=== PATIENT | female | born 1950 | race Caucasian/White ===

== ENCOUNTER → 2024-10-04 10:34 | Outpatient (REF) | payer MEDICARE, OTHER, SELFPAY | LOC: RAD 10:34 | PROVIDERS: ATTENDING PHYSICIAN Surgery Vascular Surgery | DX: I73.9 Peripheral vascular disease, unspecified (principal) | CPT/HCPCS: 93922 ==

== ENCOUNTER → 2024-10-06 09:10 | Outpatient (REF) | payer MEDICARE, OTHER, SELFPAY | LOC: RAD 09:10 | PROVIDERS: ATTENDING PHYSICIAN Surgery Vascular Surgery; FAMILY PHYSICIAN Internal Medicine | DX: I74.9 Embolism and thrombosis of unspecified artery (principal); I70.222 Atherosclerosis of native arteries of extremities with rest pain, left leg | CPT/HCPCS: 75635; Q9967 ==

== ENCOUNTER → 2024-10-09 09:52 | Outpatient (REF) | payer MEDICARE, OTHER, SELFPAY | LOC: RAD 09:52 | PROVIDERS: ATTENDING PHYSICIAN Surgery Vascular Surgery | DX: Z01.810 Encounter for preprocedural cardiovascular examination (principal); I70.222 Atherosclerosis of native arteries of extremities with rest pain, left leg; I74.8 Embolism and thrombosis of other arteries | CPT/HCPCS: 93970 ==

== ENCOUNTER 2024-10-16 09:16 | Inpatient (IN) | payer MEDICARE, OTHER, SELFPAY ==
[2024-10-12 09:32] VITALS: BMI 21.7
[2024-10-12 10:04] LABS: INR 1.06; PT 14.3 Sec (11.4-14.6)
[2024-10-12 10:05] LABS: APTT 36.7 Sec (23.4-35.0)
[2024-10-12 10:17] LABS: % Basophils 2.1 % (0-2); % Eosinophils 1.6 % (0-6); % Immature Granulocytes 0.6 % (0-0.5); % Lymphocytes 21.4 % (20.5-51.1); % Neutrophils 65.3 % (42.2-75.2); Absolute Basophils 0.3 10^3/uL (0-0.2); Absolute Eosinophils 0.2 10^3/uL (0-0.7); Absolute Immature Granulocytes 0.1 10^3/uL (0-0.05); Absolute Lymphocytes 2.9 10^3/uL (1.2-3.4); Absolute Monocytes 1.2 10^3/uL (0.1-0.6); Absolute Neutrophils 8.7 10^3/uL (1.4-6.5); Hematocrit 45.1 % (37.0-47.0); Hemoglobin 14.5 g/dL (12.0-16.0); Mean Corp Hgb Conc. 32.2 g/dL (33.0-37.0); Mean Corpuscular Hgb 27.5 pg (27.0-31.0); Mean Corpuscular Volume 85.4 fL (81.0-99.0); Mean Platelet Volume 10.1 fL (7.4-10.4); Nucleated Red Blood Cells % 0 %; Platelet Count 976 10^3/uL (130-400); Red Blood Cell Count 5.28 10^6/uL (4.20-5.40); Red Cell Dist. Width 16.5 % (11.5-14.5); White Blood Cell Count 13.3 10^3/uL (4.8-10.8)
[2024-10-12 10:22] LABS: Blood Urea Nitrogen 13 mg/dl (7-17); Calcium 9.6 mg/dl (8.4-10.2); Carbon Dioxide 27 mmol/L (22-30); Chloride 99 mmol/L (98-107); Estimated Creatinine Clearance 43 ml/min; Glucose 101 mg/dl (70-99); Potassium 5.2 mmol/L (3.5-5.1); Sodium 137 mmol/L (135-145); eGFR > 60.00
[2024-10-16] VITALS (8 sets, daily range): BP systolic 124–157; BP diastolic 62–86
[2024-10-16] MEDS: PERIDEX 0.12% ORAL RINSE 15 ML PO (10:01)
[2024-10-16] MEDS: BACTROBAN NASAL 1 GRAM NASAL (10:01)
[2024-10-16] MEDS: NSS 500 IV (10:01)
--- NOTE | 2024-10-16 12:09 | W.SUR.PREOP ---
Pre-Operative Surgical Note
-
I have examined this patient prior to the performance of the scheduled procedure.
The patient's condition is unchanged from the time of the current History and
Physical and the patient is able to undergo the scheduled procedure.
--- NOTE | 2024-10-16 12:50 | PTCARENOTE ---
attempted to call spouse, unavailable called a couple of times, called atrium spouse not visible and left atrium area, will keep a look out and notify pt went into procedure at 1245 pm
--- NOTE | 2024-10-16 15:27 | W.SUR.POST ---
Surgical Immediate Post Op
Note
Pre Op Diagnosis: PAD
Post Op Diagnosis: PAD
Procedure Performed: Left distal SFA to above knee popliteal artery interposition bypass with ipsilateral saphenous vein graft
Primary Surgeon: Jairo
Assist: Jerome MICHELLE
Anesthesia: General
Estimated Blood Loss: 40 cc
Fluids: See anesthesia flow sheet
Drains/Shunts: none
Specimens/Cultures: none
Doppler/Duplex/Angio (Y/N): Y
Complications: none
Operative Findings: palpable AT pulse, + AT signal
[2024-10-16] MEDS: DILAUDID 0.5 MG IV (16:38)
--- NOTE | 2024-10-16 16:44 | OR.RPT ---
Operative Report
Operative Report
PROCEDURE DATE: 10/16/2024
Preoperative diagnosis: Subacute left lower extremity ischemia, critical limb ischemia left lower extremity.
Postoperative diagnosis: Same
Procedure: Left distal superficial femoral artery to lhiaz-uqe-rccs popliteal artery interposition bypass with ipsilateral reversed greater saphenous vein conduit.
Surgeon: Jairo
Miter Cutter: Delia Cano NP, required for all aspects of procedure including assistance with traction/countertraction, following of suture line, assistance with closure.
Complications: None
Anesthesia: General
Indications for procedure:
Patient had ischemic rest pain and severe claudication left leg. It started relatively acutely. Had been worked up in [place] while she was visiting down there. Patient was referred back up to this area as she was from here for definitive
management. When I reviewed her CT scan imaging I saw that she had had what appeared to be embolic/clot in her left lower extremity arterial system. I repeated a CT angiogram since it had been a couple months, and this demonstrated resolution of
the external iliac/common femoral and proximal SFA clot, but there is chronic occlusion now of the above-knee popliteal artery proximally. Risk/benefits/alternatives of revascularization were fully discussed. Patient understood all wished to
proceed.
Description of procedure:
Patient was identified brought to the operating room placed on the table in supine position. After the adequate administration of anesthesia she was prepped and draped in the standard surgical fashion. A standard preoperative timeout was
undertaken and everybody was in agreement the plan. A longitudinal incision was made in the left distal medial thigh that was carried through skin subcutaneous tissue. With the electrocautery I dissected through the crural fascia layer and then
reflected the sartorius muscle posteriorly. I dissected through the loose areolar fatty tissue and identified the above the knee popliteal artery. It was nonpulsatile at this juncture. It was also somewhat firmer suggesting subacute thrombus, and
therefore I continued to dissect it until I got in my soft more normal to palpation artery. I now circumferentially dissected and passed a vessel loop around it. Now I dissected proximally. The tissues were somewhat stuck and the artery had been
somewhat inflamed and therefore was slightly challenging to dissect. However I could palpate the arterial pulsation slightly more proximally. I had to dissect some of the overlying muscle fibers in the distal SFA in order to gain distal SFA
exposure. Once I did this I noted pulsation in the artery here. This correlated to where I had marked on the skin based on ultrasound assessment preoperatively. I now circumferentially dissected here and passed a vessel loop around it. Now I
made a longitudinal incision in the medial proximal thigh that was carried through skin to be case tissue (overlying my marked right marked the greater saphenous vein based on ultrasound assessment). I dissected down through the subcutaneous
tissues and identified the greater saphenous vein. I carefully dissected a suitable segment, any branches were ligated between silk ties and divided. Once I mobilized the suitable segment I ligated proximally and distally in this field with heavy
silk tie and clipped. I then transected approximately distally. I distended under heparinized saline and distended very well. I elected to orient the vein in a reverse fashion when I sewed into place.
At this point I gave the patient 4500 units of intravenous heparin. Once this had circulated, I clamped the distal arterial exposure (the distal above-knee popliteal artery), and then clamped the distal SFA. I then ligated the artery a couple
centimeters distal to my proximal clamp, and a couple centimeters proximal to my distal clamp (with heavy silk ties). I then transected the artery proximally and distally (proximally just proximal to the silk tie and distal to the clamp, and
distally just distal to the silk tie and proximal to the clamp). Distally the arterial wall looked reasonable, there is some mild thin plaque but no significant stenosis. Proximally there was still some evidence of chronic thrombus. Therefore I
had to gain more proximal exposure beyond a branch point and then carefully circumferentially dissected there and then placed a clamp there. I then ligated the branch point. This was done with a silk tie. I then used a Fernando scissor to open the
artery more proximally until I got to the endpoint of the thrombus. I then completed the transection again at this point in the artery. I maintained the artery in a slightly spatulated orientation. I then brought the vein onto the field (again as
noted in a reverse fashion) and spatulated the vein slightly and sewed an end to end of spatulated anastomosis between the artery and the vein using a running 6-0 Prolene suture. I completed and tied down my suture line. I now placed a bulldog
clamp on the vein graft more distally and then released my proximal arterial clamp. There is excellent pulsatile flow into the vein graft. A single 6-0 Prolene ahjyfm-vt-wmedg suture was placed along the suture line along a single bleeding point,
and hemostasis was achieved along the suture line. Next I trimmed the distal aspect of the vein graft. I slightly spatulated and then sewed an end-to-end anastomosis to the distal artery (distal above-knee popliteal artery). This was done using a
running 6-0 Prolene suture. Prior to completing and tying down my suture line I backbled the marshall artery and flushed out the vein graft. I then instilled heparinized saline and then completed and tied down my suture line. I now released my
clamps on the artery proximally distally. There is excellent pulsatile flow into the vein graft. There is an excellent pulse in the artery distal to the vein graft. A couple 6-0 Prolene qkhsmi-zx-mxwkz sutures were placed along 2 small bleeding
points on the anterior wall of the distal anastomosis. Hemostasis was fully noted. I now listened with a Doppler and there is an excellent significantly graft augmented Doppler signal in the distal above-knee popliteal artery. In addition now I
could palpate a pulse at the distal anterior tibial artery at the ankle, as well confirmed an excellent Doppler signal (note based on prior CTA imaging that I had reviewed, the anterior tibial artery was the single dominant runoff vessel towards the
ankle and it did occlude at the distal ankle and there was no dorsalis pedis noted even on the delayed imaging). At this point I was very satisfied. The incision sites were then irrigated and hemostasis achieved and fully confirmed (protamine was
given to reverse the heparin). The bypass/arterial exposure incision was closed in layers using 2-0 Vicryl running layer followed by 3-0 Vicryl deep dermal layer followed by a 4-0 Monocryl subcuticular running stitch. The saphenectomy incision was
closed with 3-0 Vicryl running deep dermal layer followed by 4 Monocryl subcuticular running stitch. Dermabond was applied to both sites. The patient tolerated procedure well. All sponge, needle, instrument counts were correct at the end of the
case. The patient was transported to the recovery room in good condition.
[2024-10-16 16:49] LABS: Blood Urea Nitrogen 12 mg/dl (7-17); Carbon Dioxide 24 mmol/L (22-30); Chloride 103 mmol/L (98-107); Estimated Creatinine Clearance 38 ml/min; Glucose 129 mg/dl (70-99); Potassium 5.1 mmol/L (3.5-5.1); Sodium 135 mmol/L (135-145); eGFR > 60.00
[2024-10-16] MEDS: DILAUDID 0.25 MG IV (16:53)
[2024-10-16 16:57] LABS: INR 1.03; PT 13.8 Sec (11.4-14.6)
[2024-10-16 17:20] LABS: Hematocrit 42.2 % (37.0-47.0); Hemoglobin 13.5 g/dL (12.0-16.0); Mean Corpuscular Hgb 27.2 pg (27.0-31.0); Mean Corpuscular Volume 85.1 fL (81.0-99.0); Mean Platelet Volume 9.4 fL (7.4-10.4); Platelet Count 1040 10^3/uL (130-400); Red Blood Cell Count 4.96 10^6/uL (4.20-5.40); Red Cell Dist. Width 16.4 % (11.5-14.5); White Blood Cell Count 22.6 10^3/uL (4.8-10.8)
[2024-10-16] MEDS: MORPHINE SULFATE 2 MG IV ×2 (17:37→21:07)
--- NOTE | 2024-10-16 17:53 | PTCARENOTE ---
Pt rec'd into ICU 3364 at 17:30, VSS, LLE pulse check WNL with dopplar, Pt with 9/10 left leg pain at incision site, medicated with PRN morphine, see OCT. Left radial stacy leveled and zeroed, correlating with cuff. VSS -sat 97% on 3L which is the
patient's baseline. Orders acknowledged at this time. Skin check completed with 2nd COMMUNITY ORGANIZATION DIRECTOR. Pt sleeping s/p Morphine administration.
[2024-10-16] MEDS: NSS 1000 IV (18:11)
[2024-10-16] MEDS: HEPARIN 25000 UNITS/250 ML IV (18:29)
[2024-10-16] MEDS: ZESTRIL 20 MG PO (19:27)
[2024-10-16] MEDS: ADVAIR HFA 45/21 MCG INHALER 2 PUFF INH (19:30)
[2024-10-16] MEDS: ROXICODONE 5 MG PO (19:34)
--- NOTE | 2024-10-16 20:04 | PTCARENOTE ---
Received pt from previous RN. Pt is AAOx3, neurovascular checks Q1 (see worklist). NSR on the monitor. On 3L NC, O2 sat 98%, lungs clear. Pt c/o nausea and vomited x1, ICU SENIOR ENGINEERING TECH Cecil notified, PRN Sarah ordered and given (see MAR). Bedolla in place,
temp sensing, hygiene provided. Left upper thigh ADRIENNE wrapped. Padmini zeroed and transduced. CHG bath provided. Pt is laying in bed with call fuentes in reach.
[2024-10-16] MEDS: ZOFRAN 4 MG IV (20:07)
[2024-10-17] VITALS (17 sets, daily range): BP systolic 106–150; BP diastolic 56–89; BMI 21.5
--- NOTE | 2024-10-17 00:13 | PTCARENOTE ---
Systems reviewed, no new changes in assessment. Neurovascular checks (see worklist). Safe environment maintained.
[2024-10-17] MEDS: NSS 250 IV (01:12)
--- NOTE | 2024-10-17 01:18 | PTCARENOTE ---
Pt with decreased urine output, ICU SLAGGER Cecil and vascular account resolution analyst notified. 250 ml NS bolus ordered (see MAR).
[2024-10-17] MEDS: ROXICODONE 5 MG PO ×4 (04:12→19:30)
--- NOTE | 2024-10-17 04:20 | PTCARENOTE ---
Systems reviewed, no new changes in assessment. AM labs provided. Neurovascular checks (see worklist). Safe environment maintained.
[2024-10-17 04:46] LABS: INR 1.11; PT 14.6 Sec (11.4-14.6)
[2024-10-17 04:47] LABS: APTT 33.3 Sec (23.4-35.0)
[2024-10-17 04:49] LABS: Blood Urea Nitrogen 15 mg/dl (7-17); Calcium 8.5 mg/dl (8.4-10.2); Carbon Dioxide 21 mmol/L (22-30); Chloride 104 mmol/L (98-107); Estimated Creatinine Clearance 43 ml/min; Glucose 115 mg/dl (70-99); Potassium 5.6 mmol/L (3.5-5.1); Sodium 130 mmol/L (135-145); eGFR > 60.00
[2024-10-17 05:06] LABS: Hematocrit 34.2 % (37.0-47.0); Mean Corp Hgb Conc. 32.2 g/dL (33.0-37.0); Mean Corpuscular Hgb 27.4 pg (27.0-31.0); Mean Corpuscular Volume 85.1 fL (81.0-99.0); Platelet Count 851 10^3/uL (130-400); Red Blood Cell Count 4.02 10^6/uL (4.20-5.40); Red Cell Dist. Width 16.3 % (11.5-14.5); White Blood Cell Count 14.7 10^3/uL (4.8-10.8)
[2024-10-17] MEDS: NSS 1000 IV (06:06)
[2024-10-17] MEDS: ZESTRIL 20 MG PO ×2 (07:33→19:22)
[2024-10-17] MEDS: PROCARDIA XL (EXTENDED RELEASE) 30 MG PO (07:33)
[2024-10-17] MEDS: LIPITOR 40 MG PO (07:33)
[2024-10-17] MEDS: ASPIR LOW (ENTERIC COATED) 81 MG PO (07:33)
[2024-10-17] MEDS: MORPHINE SULFATE 2 MG IV ×2 (07:39→10:55)
--- NOTE | 2024-10-17 08:20 | W.PN.VS ---
Addendum entered and electronically signed by Joseph Bedolla III, MD 10/17/24 11:37:
This patient was seen and examined in collaboration with MIGUEL ANGEL Marcial. I agree with the history and physical exam as well as the assessment and plan.
Signed:
Joseph Bedolla III, MD
[facility]
[phone] (hphg)
Original Note:
Today's Communication / Plan
-
Patient seen and examined at bedside with Dr. Joseph Bedolla III, below plan reviewed with attending
Assessment/Plan
-
Assessment: 74-year-old female POD #1 Left distal superficial femoral artery to bjyla-pyu-njyv popliteal artery interposition bypass with ipsilateral reversed greater saphenous vein conduit.
Plan:
Discontinue arterial line
Discontinue IV fluids
OOB to chair with progression to ambulation possibly later this afternoon
Discontinue Bedolla catheter
Will discontinue standing dose IV infusion of heparin and reinitiate home oral anticoagulation
Given patient had clot/recent thrombus with no clear source consulting cardiology for their opinion on whether additional workup is required, appreciate recommendations
Mildly elevated potassium noted on morning labs will repeat and continue to trend
Subjective Data
-
Date of Service: October 17, 2024
Patient seen and examined at bedside, offers no complaints. Reports adequate postoperative pain management. Reports tolerating p.o. diet. Denies nausea, vomiting, fever, and chills. Patient notes no rest pain overnight at left foot.
Objective Data
-
Vital Signs
Temp Pulse Resp BP Pulse Ox
99.5 F 88 16 133/78 100
10/17/24 02:50 10/17/24 06:00 10/17/24 06:00 10/17/24 04:00 10/17/24 06:00
Intake and Output
02/24/25 02/25/25 02/26/25
06:59 06:59 06:59
Intake Total 2075 / 2160 170 / 170
Output Total 1127 / 1127 280 / 280
Balance 948 / 1033 -110 / -110
Intake:
Oral fluids 720 / 720
IV fluids (Total) 1355 / 1440 170 / 170
Nss 1,000 ml @ 80 mls/hr IV . 1040 / 1120 160 / 160
[id number] HIGINIO Rx#:[id number]
bolus 250 / 250
heparin 65 / 70 10 10
Output:
Urine, Bedolla 882 / 882 280 / 280
Urine, Voided 245 / 245
Lab Results
10/17/24 04:00
10/17/24 04:00
Calcium 8.5 mg/dl (8.4-10.2) 10/17/24 04:00
Physical Exam
-
No apparent distress, resting in bed comfortably
No tachycardia
No dyspnea on nasal cannula
ABD flat, nontender, nondistended
Left upper thigh surgical dressing x 2 CDI, no evidence of hematoma, all surrounding compartments soft
Left foot warm, unchanged palpable AT pulse
Bedolla draining clear yellow urine
--- NOTE | 2024-10-17 08:24 | CON.INTV ---
Consultation
Consultation Request
Date/Time Consultation Requested: 10/16/2024 - 152
Date/Time Consultation Performed: 10/17/2024 - 819
Requesting Provider: MIGUEL ANGEL Casas
Performing Provider: Dr. Wallace
Reason for Consultation: s/p LLE bypass
Medical History
-
Chief Complaint: Elective left distal SFA to above knee pop to artery interposition bypass
History of Present Illness:
74-year-old female with a past medical history of depression, migraines, arthritis, hypertension, tobacco use disorder, reported history of COPD, chronic HFpEF, PAD and history of left femoral artery occlusion who presents with elective left lower
extremity bypass. Patient known to vascular surgery with last visit on 10/10/[address] Gill. Patient had a recent CTA abdominal aorta with runoff on 10/06/2024 showing focal occlusion of her left distal SFA/proximal popliteal artery extending
along the length of about 4.5 cm. Also the right PT artery is occluded near its origin. Surgical revascularization was reviewed and patient agreed to the procedure. Today she underwent a left distal SFA to above the knee popliteal artery
interposition bypass with ipsilateral saphenous vein graft. EBL was 40 cc and there was no immediate complication. She was transferred to the ICU postoperatively for further care and linderman machine operator services consulted for additional
management/recommendations.
Pt seen and evaluated this AM. Of note she arrived here to the ICU late yesterday evening after 5 PM. She is out of bed to the chair. She is awake and alert. She is on 2L/min O2 (which she uses at night usually). HR 105, BP 136/65 and SpO2 96%.
She has pain on her left leg mainly with movement otherwise at rest she feels fine. She currently denies chest pain, SAVAGE, nausea, fevers or chills.
PMHx: Severe major depression, tubal ligation, Hx of migraines, neck pain, Arthritis, benign hypertension, tobacco use disorder, chronic obstructive pulmonary disease (COPD), hyperlipemia, chronic HFpEF, peripheral vascular disease, arterial
occlusive disease, femoral artery occlusion (left), chronic hypoxic respiratory failure on home O2 at 2 L/min
PSHx: Noncontributory
Past Medical History
Past Medical History: Other (Above as per HPI)
Past Surgical History: Other (Above as per HPI)
Social History
Tobacco: Smoker (1 PPD)
Alcohol: None
Drug: None
Family History
Family History: Cancer (Sibling: Melanoma; Sibling: Lymphoma) and Other (Paternal grandfather: Arthritis)
Allergies / Home Medications
Allergies
Allergy/AdvReac Type Severity Reaction Status Date / Time
No Known Allergies Allergy Verified 10/16/24 09:02
Home Medications
�Medication �Instructions �Recorded �Confirmed �Last Taken �Type
albuterol sulfate 2.5 mg/3 mL 2.5 mg inhalation Q4H PRN SOB 10/03/24 10/16/24 10/15/24 History
(0.083 %) solution for nebulization
albuterol sulfate 90 mcg/actuation 2 puff inhalation QHS PRN SOB 10/03/24 10/16/24 10/16/24 04:00 History
aerosol inhaler (Ventolin HFA)
apixaban 5 mg tablet 5 mg PO BID BLOOD THINNER 10/03/24 10/16/24 10/13/24 History
aspirin 81 mg tablet,delayed 81 mg PO DAILY BLOOD THINNER 10/03/24 10/16/24 10/16/24 History
release
atorvastatin 40 mg tablet 40 mg PO DAILY CHOLESTEROL 10/03/24 10/16/24 10/15/24 History
fluticasone 100 mcg-salmeterol 50 1 inh inhalation Q12H SOB 10/03/24 10/16/24 10/15/24 History
mcg/dose blistr powdr for
inhalation (Advair Diskus)
lisinopril 20 mg tablet 20 mg PO Q12H BP 10/03/24 10/16/24 10/16/24 07:00 History
nifedipine 30 mg tablet,extended 30 mg PO DAILY BP 10/03/24 10/16/24 10/15/24 History
release
Review of Systems
-
History Source: Patient
All other systems: Negative unless noted
Vitals / Labs / Diagnostic Testing
Vital Signs
Temp Pulse Resp BP Pulse Ox
99.5 F 56 18 133/78 99
10/17/24 07:35 10/17/24 08:37 10/17/24 08:37 10/17/24 04:00 10/17/24 08:37
Lab Data
10/17/24 04:00
Laboratory Results
10/16/24 10/17/24
16:27 04:00
PT 13.8 14.6
INR 1.03 1.11
APTT 36.0 H 33.3
Diagnostic Testing:
Physical Exam
-
HEENT: Normocephalic and Anicteric
Cardiovascular: S1/S2 and Peripheral Edema (negative)
Respiratory: Clear, Wheeze (negative), Rales (negative), Rhonchi (negative) and Non-Labored Respirations
GI: Soft, Non Distended, Non Tender and Normal Bowel Sounds
Neurology: AO x 3 and Tremors (negative)
Skin: Warm and Dry
General: Respiratory Distress (negative), Comfortable, Pain (Left lower extremity pain with movement), Fever (negative) and Chills (negative)
Assessment
-
Assessment: 74-year-old female with a past medical history of depression, migraines, arthritis, hypertension, tobacco use disorder, reported history of COPD, chronic HFpEF, PAD and history of left femoral artery occlusion who presents with elective
left lower extremity bypass. Patient known to vascular surgery with last visit on 10/10/[address] Gill. Patient had a recent CTA abdominal aorta with runoff on 10/06/2024 showing focal occlusion of her left distal SFA/proximal popliteal artery
extending along the length of about 4.5 cm. Also the right PT artery is occluded near its origin. Surgical revascularization was reviewed and patient agreed to the procedure. Today she underwent a left distal SFA to above the knee popliteal
artery interposition bypass with ipsilateral saphenous vein graft. EBL was 40 cc and there was no immediate complication. She was transferred to the ICU postoperatively for further care and linderman machine operator services consulted for additional
management/recommendations.
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
disease, arterial occlusive disease, femoral artery occlusion (left), chronic hypoxic respiratory failure on home O2 at 2 L/min
Impression:
#Critical LLE ischemia s/p left distal superficial femoral artery to vivph-equ-ebxe popliteal artery interposition bypass with ipsilateral reversed greater saphenous vein conduit (POD#1)
#Leukocytosis likely reactive due to above
#Anemia
#Thrombocytosis
#Hyponatremia
#Hypocalcemia
#Left adnexa mixed solid/cystic lesion measuring 5.4 x 4.5 x 3 cm
#Chronic hypoxic respiratory failure on home O2 with 2 L/min
#Tobacco use disorder
#History of COPD
Plan:
Postoperative surgical intensive care unit monitoring
Supplemental oxygen as needed to maintain SpO2 >90-94%
prn nebulized bronchodilators � not currently bronchospastic
Incentive spirometry encouraged 10x per hour for at least 4 hrs a day
Aspiration precautions
Pain control
Continue with Advair 45mcg with prn Albuterol --> would recommend outpatient pulmonary office follow-up.
Consider outpatient pelvic ultrasound to further assess the left adnexal lesion seen on her CTA abdominal aorta from 10/06/2024
Recommend outpatient hematology evaluation given her degree of thrombocytosis which was 1040 on 10/16/2024 --> unclear what her baseline platelet count is
Neuro and vascular checks per protocol (currently q1hr)
Maintain MAP>65
Replete electrolytes with K>4, Mg>2
Maintain euglycemia with goal BG 140-180
Vascular surgery following-correspondence and operative notes reviewed
Transfuse blood products as needed to keep Hb>7g/dL, and plt>50k (given post-operative status)
Recommend nicotine patch, if ok with vascular surgery
DVT prophylaxis: Eliquis
Early nutrition
Early mobilization
Patient requires q1hr neurovascular checks, hence continue with ICU level of care. Once she is downgraded to telemetry then we will sign off at that time.
Critical care statement: A total of 41 minutes of critical care time was provided for this patient today. This includes management of unstable vital signs, evaluation of the patient at bedside, reviewing the patient's pertinent medical records
including radiographs, microbiology, laboratory evaluations, and discussion with primary team, consultants, pharmacy, nutrition, physical therapy, case management, charge nurse, critical care nursing, and respiratory therapy.
[2024-10-17] MEDS: ADVAIR HFA 45/21 MCG INHALER 2 PUFF INH ×2 (08:32→20:26)
[2024-10-17 09:28] LABS: Blood Urea Nitrogen 13 mg/dl (7-17); Calcium 8.2 mg/dl (8.4-10.2); Carbon Dioxide 23 mmol/L (22-30); Chloride 107 mmol/L (98-107); Estimated Creatinine Clearance 49 ml/min; Glucose 93 mg/dl (70-99); Potassium 4.7 mmol/L (3.5-5.1); Sodium 134 mmol/L (135-145); eGFR > 60.00
[2024-10-17] MEDS: ELIQUIS 5 MG PO ×2 (09:58→19:22)
--- NOTE | 2024-10-17 10:28 | CON.CAR ---
Addendum entered and electronically signed by Randy Morales MD 10/17/24 12:29:
74-year-old woman with known PAD, COPD on 3 L nasal cannula, still smoking admitted yesterday with left clot and external iliac artery thrombus, also with thrombus in proximal left SFA and occlusion of distal left SMA, status post left lower
extremity arterial bypass October 16.
Note below reviewed, data reviewed, patient interviewed and examined, agree with findings, assessment and plan as below.
PMH: PAD, COPD on home O2, ongoing tobacco use, hypertension, hyperlipidemia
PSH/SH/FH/allergies/meds reviewed
ROS: See below
136/65, pulse 99, respiratory 23, and 37.5, sats 96%, pleasant, frail, body habitus of COPD, head neck exam unremarkable, rhonchi and diminished breath sounds, regular rate and rhythm, soft systolic murmur, JVD okay, left DP pulse is palpable,
diminished pulses right leg,
Hemoglobin 11.0, white count 14.7, BUN and creatinine are 13 and 0.7
Impression:
Presumed atheroembolic thrombosis of left lower extremity
For full impression, see below
Plan:
Doubt cardioembolic source, but check echo with bubble study and arrange for outpatient monitor
Instructed regarding smoking cessation.
Surgical ice use as per vascular.
Original Note:
Consultation
Consultation Request
Date/Time Consultation Performed: 10/17/24
Requesting Provider: Dr. Gill
Performing Provider: Alma Dinh PA-C for Dr. GEOVANNA Morales
Reason for Consultation: arterial thrombus
Medical History
-
Chief Complaint: LLE pain
History of Present Illness:
Patient is a 74-year-old female with past medical history of PAD, COPD chronically on 3 L nasal cannula with ongoing tobacco use, hypertension, hyperlipidemia, osteoarthritis of fingers who was referred to [facility] for admission after
seen in vascular surgery office on 10/16/2024. By CT scan at outside hospital she had trailing clot in distal external iliac artery into common femoral artery on left as well as focal area of clot in proximal SFA and again more distally and SFA with
occlusion of SFA/above-knee popliteal artery with reconstitution below the knee. She had repeat CT 10/06/2024 with mid SFA stenosis due to plaque or chronic thrombus with occlusion of the vziat-jnt-iugt popliteal artery with reconstitution and
distal behind the knee segment. She reported significant worsening of left lower extremity pain and therefore underwent left lower extremity arterial bypass 10/16/2024. Cardiology consulted for evaluation of possible cardiac source of thrombus.
She had recent echocardiogram 06/2024 at outside hospital in [place] (she and her were down helping family member who was ill) which showed preserved EF, no regional wall motion abnormalities, trace AR but interatrial septum not
well-visualized. She denies chest pain, shortness of breath, palpitations or abnormal heartbeats. She denies history of arrhythmia and does not follow regularly with a financial planning analyst.
PMH:
PAD
COPD, chronically on 3 L nasal cannula
Ongoing tobacco use
Hypertension
Hyperlipidemia
Osteoarthritis of fingers
Past Medical History
Past Medical History: Other (in HPI)
Social History
Tobacco: Smoker (1 ppd)
Alcohol: Other (rare)
Personal:
Living: With Family
Employment: Retired
Family History
Family History: Reviewed & Not Pertinent
Allergies / Home Medications
Allergy/AdvReac Type Severity Reaction Status Date / Time
No Known Allergies Allergy Verified 10/16/24 09:02
�Medication �Instructions �Recorded �Confirmed �Type
albuterol sulfate 2.5 mg/3 mL 2.5 mg inhalation Q4H PRN SOB 10/03/24 10/16/24 History
(0.083 %) solution for nebulization
albuterol sulfate 90 mcg/actuation 2 puff inhalation QHS PRN SOB 10/03/24 10/16/24 History
aerosol inhaler (Ventolin HFA)
apixaban 5 mg tablet 5 mg PO BID BLOOD THINNER 10/03/24 10/16/24 History
aspirin 81 mg tablet,delayed 81 mg PO DAILY BLOOD THINNER 10/03/24 10/16/24 History
release
atorvastatin 40 mg tablet 40 mg PO DAILY CHOLESTEROL 10/03/24 10/16/24 History
fluticasone 100 mcg-salmeterol 50 1 inh inhalation Q12H SOB 10/03/24 10/16/24 History
mcg/dose blistr powdr for
inhalation (Advair Diskus)
lisinopril 20 mg tablet 20 mg PO Q12H BP 10/03/24 10/16/24 History
nifedipine 30 mg tablet,extended 30 mg PO DAILY BP 10/03/24 10/16/24 History
release
Review of Systems
-
History Source: Patient and Family
All other systems: Negative unless noted
Physical Exam
Vital Signs
Temp Pulse Resp BP Pulse Ox
99.5 F 56 18 133/78 99
10/17/24 07:35 10/17/24 08:37 10/17/24 08:37 10/17/24 04:00 10/17/24 08:37
Lab Results
10/17/24 04:00
10/17/24 08:58
Physical Exam
General: No Apparent Distress, Comfortable and Other (frail elderly appearing female on supp O2)
HEENT: Normocephalic, Anicteric and Moist Mucous Membranes
Respiratory: Clear and Non Labored Respirations
Cardiac: S1/S2 and Regular Rhythm
GI: Soft, Non Tender, Non Distended and Normal Bowel Sounds
Musculoskeletal: No Clubbing, No Cyanosis, No Edema and Other (L foot warm)
Skin: Warm and Dry
Neuro: AO x 3
Impression / Plan
-
Primary Chemist Organic: none prior to admission
Assessment:
Severe PAD s/p LLE bypass (Left distal superficial femoral artery to uxavz-cvt-okpa popliteal artery interposition bypass with ipsilateral reversed greater saphenous vein conduit) 10/16/24
COPD, chronically on 3 L nasal cannula
Ongoing tobacco use
Hypertension
Hyperlipidemia
Osteoarthritis of fingers
ECHO OSH 07/14/24: EF 50 to 55%, no regional wall motion abnormalities, trace AR, dilated IVC 2.1 cm, no pericardial effusion, interatrial septum not well-visualized
Plan:
-Patient underwent left lower extremity bypass 10/16/2024 in setting of severe PAD and claudication symptoms. By prior CT scan 10/06/2024 there was concern for arterial thrombus.
-Cardiology has been consulted to evaluate patient for cardiac source of thrombus
-Last echo from outside hospital 06/2024 as above. Could consider repeating echo with bubble vs MARK
-In sinus rhythm on review of telemetry since admission. no reports of palpitations
-Would consider for outpatient cardiac monitoring
-Patient has been started on Eliquis in addition to aspirin per vascular
-may need hypercoagulable work up
-Advised smoking cessation
-Discussed with patient and at bedside
Data Reviewed
-
EKG: Tracing Personally Visualized and interpreted
CT Scan: Report Reviewed by me
Medical Tests (Nuc Med, Echo etc): Report Reviewed by me
Labs: Labs Reviewed by me
Old Records: Reviewed
[2024-10-17] MEDS: TYLENOL 650 MG PO ×2 (12:32→22:05)
--- NOTE | 2024-10-17 12:46 | PTCARENOTE ---
Pt AAOx3. A-line d/c'd. Bedolla d/c'd. OOB in chair. Increased pain today. Has received PRN Oxycondone, Morphine and Tylenol for pain in left thigh. Reported as high as 10/10 with transfer. Good appetite, denies nausea. Oxygen at 2L via NC.
Neurovascular checks WNL. Doppler left DP and PT. All other assessments unchanged.
--- NOTE | 2024-10-17 17:00 | PTCARENOTE ---
Out of bed in chair most of the day. Reports 10/10 pain with transfer but otherwise tolerable after receiving PRN Oxycodone. Neurovacular checks WNL. All other assessments unchanged.
[2024-10-17] MEDS: NSS IV (17:30)
--- NOTE | 2024-10-17 20:28 | PTCARENOTE ---
Received pt from previous RN. Pt is AAOx3, neurovascular checks Q4 (see worklist). NSR on the monitor. On 3L NC O2 sat 94%, lungs clear. Pt assisted to the BSCx1. Pt c/o left upper leg pain, PRN pain medication given (see MAR). CHG bath provided. Pt
is laying in bed with call fuentes in reach.
[2024-10-18] VITALS (14 sets, daily range): BP systolic 104–154; BP diastolic 58–81; PULSE 111; O2SAT 94; BMI 21.2
--- NOTE | 2024-10-18 00:18 | PTCARENOTE ---
Systems reviewed, no new changes in assessment. Safe environment maintained.
[2024-10-18 04:25] LABS: Hematocrit 33.1 % (37.0-47.0); Hemoglobin 10.9 g/dL (12.0-16.0); Mean Corp Hgb Conc. 32.9 g/dL (33.0-37.0); Mean Corpuscular Hgb 27.3 pg (27.0-31.0); Mean Platelet Volume 9.9 fL (7.4-10.4); Platelet Count 805 10^3/uL (130-400); Red Blood Cell Count 3.99 10^6/uL (4.20-5.40); Red Cell Dist. Width 16.2 % (11.5-14.5); White Blood Cell Count 11.9 10^3/uL (4.8-10.8)
[2024-10-18 04:43] LABS: Blood Urea Nitrogen 15 mg/dl (7-17); Calcium 8.8 mg/dl (8.4-10.2); Carbon Dioxide 23 mmol/L (22-30); Chloride 104 mmol/L (98-107); Estimated Creatinine Clearance 43 ml/min; Glucose 109 mg/dl (70-99); Magnesium 2.2 mg/dl (1.6-2.3); Sodium 134 mmol/L (135-145); eGFR > 60.00
--- NOTE | 2024-10-18 04:56 | PTCARENOTE ---
Systems reviewed, no new changes in assessment. AM labs provided. Safe environment maintained.
[2024-10-18] MEDS: ROXICODONE 5 MG PO ×2 (06:58→12:09)
--- NOTE | 2024-10-18 07:33 | W.PN.CARDCBS ---
Today's Communication / Plan
-
Telemetry stable with no significant events.
Plan will be for echo with bubble study today.
Continue Eliquis, aspirin, and atorvastatin.
Continue postop care.
Impression / Plan
-
Primary Policy Analyst: none prior to admission
Assessment:
Severe PAD s/p LLE bypass (Left distal superficial femoral artery to wwpus-bwo-tkid popliteal artery interposition bypass with ipsilateral reversed greater saphenous vein conduit) 10/16/24
COPD, chronically on 3 L nasal cannula
Ongoing tobacco use
Hypertension
Hyperlipidemia
Osteoarthritis of fingers
ECHO OSH 07/14/24: EF 50 to 55%, no regional wall motion abnormalities, trace AR, dilated IVC 2.1 cm, no pericardial effusion, interatrial septum not well-visualized
Plan:
-Patient underwent left lower extremity bypass 10/16/2024 in setting of severe PAD and claudication symptoms. By prior CT scan 10/06/2024 there was concern for arterial thrombus.
-Cardiology has been consulted to evaluate patient for cardiac source of thrombus
-Last echo from outside hospital 06/2024. Will repeat transthoracic echo today with bubble study. With recent lower extremity bypass surgery will hold off on MARK.
-Remains in sinus rhythm. Continue to follow on telemetry. Would consider outpatient monitoring
-Patient has been started on Eliquis in addition to aspirin per vascular
-may need hypercoagulable work up
-Continue lisinopril and nifedipine. Blood pressure stable.
-Advised smoking cessation
-Discussed with patient
Progress Note - Policy Analyst
Subjective
Date of Service: October 18, 2024
Denies palpitations, chest pains, or shortness of breath.
Objective
Labs:
10/18/24 04:06
10/18/24 04:06
Labs
Hgb 10.9 g/dL (12.0-16.0) L 10/18/24 04:06
Hct 33.1 % (37.0-47.0) L 10/18/24 04:06
Plt Count 805 10^3/uL (130-400) H 10/18/24 04:06
PT 14.6 Sec (11.4-14.6) 10/17/24 04:00
INR 1.11 10/17/24 04:00
APTT 33.3 Sec (23.4-35.0) 10/17/24 04:00
Sodium 134 mmol/L (135-145) L 10/18/24 04:06
Potassium 5.0 mmol/L (3.5-5.1) 10/18/24 04:06
BUN 15 mg/dl (7-17) 10/18/24 04:06
Creatinine 0.8 mg/dL (0.6-1.0) 10/18/24 04:06
Glucose 109 mg/dl (70-99) H 10/18/24 04:06
Vital Signs and I&O:
Vital Signs
Temp Pulse Resp BP Pulse Ox
98.1 F 88 25 153/73 94
10/18/24 04:08 10/18/24 06:00 10/18/24 06:00 10/18/24 06:00 10/18/24 06:00
Vital Signs
Temp Pulse Resp BP Pulse Ox
98.1 F 88 25 153/73 94
10/18/24 04:08 10/18/24 06:00 10/18/24 06:00 10/18/24 06:00 10/18/24 06:00
Intake & Output
10/16/24 10/17/24 10/18/24 10/19/24
06:59 06:59 06:59 06:59
Intake Total 2074 / 2160 1705 / 1705
Output Total 1127 / 1127 5 / 2125
Balance 948 / 1033 -420 / -420
Physical Exam
Physical Exam
GEN: No distress, awake, Ox3
HEENT: supple, anicteric, mmm
LUNGS: CTA, no wheezes/rales
CV: Reg, S1/S2, 1/6 syst LSB, no gallop
ABD: soft, BS+, NT/ND
EXT: dressing intact
NEURO: Gross non-focal
SKIN: No rash
[2024-10-18] MEDS: ADVAIR HFA 45/21 MCG INHALER 2 PUFF INH (07:35)
[2024-10-18] MEDS: PROCARDIA XL (EXTENDED RELEASE) 30 MG PO (07:56)
[2024-10-18] MEDS: ZESTRIL 20 MG PO (07:57)
[2024-10-18] MEDS: ELIQUIS 5 MG PO (07:57)
[2024-10-18] MEDS: ASPIR LOW (ENTERIC COATED) 81 MG PO (07:57)
[2024-10-18] MEDS: LIPITOR 40 MG PO (07:57)
--- NOTE | 2024-10-18 08:20 | W.PN.INTV ---
Today's Communication / Plan
Recommendations
Up OOB
Pain control
Discharge per vascular surgery
Patient being prepared for discharge home. No additional recommendations at this time. Managing Member Pulmonary service will now sign off. Please reconsult if there are any additional questions/concerns, or if patient's respiratory status
deteriorates.
Assessment
-
Assessment: 74-year-old female with a past medical history of depression, migraines, arthritis, hypertension, tobacco use disorder, reported history of COPD, chronic HFpEF, PAD and history of left femoral artery occlusion who presents with elective
left lower extremity bypass. Patient known to vascular surgery with last visit on 10/10/[address] Gill. Patient had a recent CTA abdominal aorta with runoff on 10/06/2024 showing focal occlusion of her left distal SFA/proximal popliteal artery
extending along the length of about 4.5 cm. Also the right PT artery is occluded near its origin. Surgical revascularization was reviewed and patient agreed to the procedure. Today she underwent a left distal SFA to above the knee popliteal
artery interposition bypass with ipsilateral saphenous vein graft. EBL was 40 cc and there was no immediate complication. She was transferred to the ICU postoperatively for further care and compensation adjuster services consulted for additional
management/recommendations.
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
disease, arterial occlusive disease, femoral artery occlusion (left), chronic hypoxic respiratory failure on home O2 at 2 L/min
Impression:
#Critical LLE ischemia s/p left distal superficial femoral artery to [id number]-byo-[id number] popliteal artery interposition bypass with ipsilateral reversed greater saphenous vein conduit (POD#2)
#Leukocytosis likely reactive due to above
#Anemia
#Thrombocytosis
#Hyponatremia
#Hypocalcemia
#Left adnexa mixed solid/cystic lesion measuring 5.4 x 4.5 x 3 cm
#Chronic hypoxic respiratory failure on home O2 with 2 L/min
#Tobacco use disorder
#History of COPD
Plan:
Postoperative surgical intensive care unit monitoring
Supplemental oxygen as needed to maintain SpO2 >90-94%
prn nebulized bronchodilators � not currently bronchospastic
Incentive spirometry encouraged 10x per hour for at least 4 hrs a day
Aspiration precautions
Pain control
Continue with Advair 45mcg with prn Albuterol --> would recommend outpatient pulmonary office follow-up.
Consider outpatient pelvic ultrasound to further assess the left adnexal lesion seen on her CTA abdominal aorta from 10/06/2024
Recommend outpatient hematology evaluation given her degree of thrombocytosis which was 1040 on 10/16/2024 --> unclear what her baseline platelet count is
Neuro and vascular checks per protocol (currently q1hr)
Maintain MAP>65
Replete electrolytes with K>4, Mg>2
Maintain euglycemia with goal BG 140-180
Vascular surgery following-correspondence and operative notes reviewed
Transfuse blood products as needed to keep Hb>7g/dL, and plt>50k (given post-operative status)
Recommend nicotine patch, if ok with vascular surgery
DVT prophylaxis: Eliquis
Early nutrition
Early mobilization
Patient being prepared for discharge home. No additional recommendations at this time. Managing Member Pulmonary service will now sign off. Thank you for allowing us to be involved in the care of this patient. Please reconsult if there are any
additional questions/concerns, or if patient's respiratory status deteriorates.
Total time spent today was 42 minutes for this encounter. Time includes reviewing laboratory test/imaging results, reviewing pertinent medical records, obtaining and reviewing medical history, performing an appropriate exam, ordering medications,
tests and procedures. Time also includes documentation of this encounter, coordinating patient care and communicating with other healthcare professionals. Total time does not include separately billed tests performed on this date of service.
Subjective Dataa
Subjective Data
Date of Service:
Date of Service: October 18, 2024
Chief Complaint: Managing Member Follow Up
Subjective:
Patient seen and evaluated today at bedside. Prepare for discharge home today. No events reported from overnight.
Review of Systems
General: Other (Negative unless mentioned above)
Objective Data
Data Reviewed
Vital Signs / I&O / Oxygen:
Vital Signs
Temp Pulse Resp BP Pulse Ox
98.5 F 94 20 153/73 95
10/18/24 11:20 10/18/24 07:41 10/18/24 07:41 10/18/24 06:00 10/18/24 07:41
Intake and Output
10/17/24 10/18/24 10/19/24
06:59 06:59 06:59
Intake Total 2075 / 2160 1705 / 1705
Output Total 1127 / 1127 2125 / 2125 150 / 150
Balance 948 / 1033 -420 / -420 -150 / -150
SaO2 95
Nasal Cannula flow liters per 2
minute
Physical Exam
General: Respiratory Distress (n), Comfortable and Chills (n)
HEENT: Normocephalic and Anicteric
Cardiovascular: S1-S2 and Peripheral Edema (n)
Respiratory: Wheeze (n), Crackles (n), Rhonchi (n) and Non-Labored Respirations
GI: Soft, Non Distended, Non Tender and Normal Bowel Sounds
Neurology: AO x 3 and Tremors (n)
Skin: Warm, Dry and Other (Left lower extremity pain with movement)
Labs/Micro/Reports
Lab Data
10/18/24 04:06
10/18/24 04:06
--- NOTE | 2024-10-18 08:26 | W.PN.VS ---
Addendum entered and electronically signed by Joseph Bedolla III, MD 10/18/24 10:28:
This patient was seen and examined in collaboration with MIGUEL ANGEL Marcial. I agree with the history and physical exam as well as the assessment and plan.
Signed:
Joseph Bedolla III, MD
[facility] Vascular Surgery
[phone] (hxdc)
Original Note:
Today's Communication / Plan
-
Patient seen and examined at bedside with Dr. Joseph Bedolla III, below plan reviewed with attending
Assessment/Plan
-
Assessment: 74-year-old female POD #2 Left distal superficial femoral artery to [id number]-xzp-[id number] popliteal artery interposition bypass with ipsilateral reversed greater saphenous vein conduit.
Plan:
Out of bed to chair with progression ambulation as tolerated
Physical therapy
Continue anticoagulation
Appreciate cardiology recommendations
Can downgrade to telemetry
Case management consultation for home versus rehab needs
Subjective Data
-
Date of Service: October 18, 2024
Patient seen and examined at bedside, offers no complaints. Does endorse increased tenderness and pain at surgical incision with ambulation to chair yesterday, otherwise postoperative pain management well-managed with current regimen. Denies
nausea, vomiting, fever, and chills.
Objective Data
-
Vital Signs
Temp Pulse Resp BP Pulse Ox
99.6 F 94 20 153/73 95
10/18/24 08:25 10/18/24 07:41 10/18/24 07:41 10/18/24 06:00 10/18/24 07:41
Intake and Output
10/17/24 10/18/24 10/19/24
06:59 06:59 06:59
Intake Total 2075 / 2160 1705 / 1705
Output Total 1127 / 1127 2125 / 2125 150 / 150
Balance 948 / 1033 -420 / -420 -150 / -150
Intake:
Oral fluids 720 / 720 1450 / 1450
IV fluids (Total) 1355 / 1440 255 / 255
Nss 1,000 ml @ 80 mls/hr IV . 1040 / 1120 240 / 240
[id number] HIGINIO Rx#:[id number]
bolus 250 / 250
heparin 65 / 70 15 / 15
Output:
Urine, Bedolla 882 / 882 690 / 690
Urine, Voided 245 / 245 1435 / 1435 150 / 150
Other:
Number of approximated MODERATE 1
amounts of urine
Number of approximated LARGE 1
amounts of urine
Lab Results
10/18/24 04:06
10/18/24 04:06
Calcium 8.8 mg/dl (8.4-10.2) 10/18/24 04:06
Phosphorus 3.0 mg/dl (2.5-4.5) 10/18/24 04:06
Magnesium 2.2 mg/dl (1.6-2.3) 10/18/24 04:06
Physical Exam
-
No apparent distress, resting in bed comfortably
No tachycardia
No dyspnea on nasal cannula
ABD flat, nontender, nondistended
Left upper thigh surgical dressing x 2 removed, Exofin glue intact, sutures well-approximated, no evidence of hematoma, all surrounding compartments soft
Left foot warm, unchanged palpable AT pulse
--- NOTE | 2024-10-18 11:07 | PN.CDI ---
CDI
- -
CDI:
Physician Documentation Request
Admit Date: 10/16/24 09:16
Dear MIGUEL ANGEL Kinney,
Please review the following and provide your response in the progress notes.
Clinical Indicators:
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
#Anemia
PN, 10/18
#...POD #2 Left distal superficial femoral artery to [id number]-hsu-symr
#...popliteal artery interposition bypass with
#...ipsilateral reversed greater saphenous vein conduit.
Laboratory Tests
10/12/24 10/16/24 10/17/24
09:40 16:28 04:00
Hgb 14.5 13.5 11.0 L
Hct 45.1 42.2 34.2 L
10/18/24
04:06
Hgb 10.9 L
Hct 33.1 L
Based on the above and your clinical assessment, please clarify the condition/diagnosis evaluated, monitored and/or treated?
Acute blood loss anemia
Acute blood loss anemia with baseline chronic anemia (Specify type)
Abnormal lab value, clinically insignificant
Other(please specify)
Use of terms such as suspected, likely, concern for, or probable (associated with a specific diagnosis that is being evaluated, monitored, or treated as if it exists) are acceptable and can be coded in the inpatient setting, when documented at the
time of discharge.
Thank you,
Magaly Rebollar RN BSN CCDS
CDI Specialist
please contact via tiger text
Please use your independent medical judgment in providing your response.
--- NOTE | 2024-10-18 11:43 | W.[place]-PDMP ---
[place]-PD[place]
-
Checked the [place]- Prescription Drug Monitoring Program website, no red flags identified; safe to proceed with prescription.
--- NOTE | 2024-10-18 11:56 | CM ---
CM following re: discharge planning.
Reviewed pt's chart, met with pt and pt's at bedside.
Pt is a 74 year old female, admitted with primary dx of POD #2 Left distal superficial femoral artery to hdpxk-qhz-nonx popliteal artery interposition bypass.
Pt reports she lives with in a trailer, no steps to enter, has 4supportive children. 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 Pt reports she has
no VN or SNF history.
PT and OT evaluations noted - home PT/OT recommended. Pt is aware, expressed her agreement. A list of VN vendors provided, pt preferred [facility]. A referral to VN made.
Discharge order noted. Both pt and her are aware, expressed their agreement. IMM reviewed, placed on chart, pt has a copy.
Please fax discharge instructions to [facility] at [phone].
D/C plan: home with [facility] and family support. to transport.
--- NOTE | 2024-10-18 12:15 | VNURNOTE ---
Home Health Liaison met with patient and spouse at bedside to discuss [facility] nurse/therapy, visits, schedule and homebound status. Both are agreeable and understand that visits at home will be 2-3 x per week to assess and teach medical management.
Both are aware that [facility] will contact them for start of care in 1-2 days after discharge from .
[facility] referral completed in [facility] Port.
[2024-10-18] MEDS: FLUAD (65 yr+) 2024-2025 FORMULA 0.5 ML IM (12:27)
[2024-10-18] MEDS: MIRALAX 17 GRAMS PO (12:28)
--- NOTE | 2024-10-18 13:06 | PTCARENOTE ---
Pt discharged to home with . IV and tele monitor d/c'd. Reviewed all discharge instructions, follow up appt and meds with pt and .
--- NOTE | 2024-10-23 10:20 | W.PN.UPDATE ---
Update Note
Progress Note Update
In response to CDI
Clinical Indicators:
Day Care Provider, 10/17
#Anemia
PN, 10/18
#...POD #2 Left distal superficial femoral artery to vomnr-quu-zivq
#...popliteal artery interposition bypass with
#...ipsilateral reversed greater saphenous vein conduit.
Laboratory Tests
10/12/24 10/16/24 10/17/24
09:40 16:28 04:00
Hgb 14.5 13.5 11.0 L
Hct 45.1 42.2 34.2 L
10/18/24
04:06
Hgb 10.9 L
Hct 33.1 L
Based on the above and your clinical assessment, please clarify the condition/diagnosis evaluated, monitored and/or treated?
Patient likely experiencing acute blood loss anemia with a component of hemodilution, condition/diagnosis was monitored via repeat a.m. CBC, with 10/17 and 10/18 hemoglobin trend remaining stable
== END 2024-10-18 12:55 | disposition home health service (06) | DRG 253 ==
LOC: ICU 09:16
PROVIDERS: Nurse Practitioner; Nurse Practitioner Acute Care; Nurse Practitioner Family; ADMITTING PHYSICIAN Surgery Vascular Surgery; CONSULT PHYSICIAN Internal Medicine Cardiovascular Disease; CONSULT PHYSICIAN Internal Medicine Critical Care Medicine; FAMILY PHYSICIAN Internal Medicine
PROC: 041L09L Bypass Left Femoral Artery to Popliteal Artery with Autologous Venous Tissue, Open Approach (ICD-10-PCS; 2024-10-16)
PROC: 3E02340 Introduction of Influenza Vaccine into Muscle, Percutaneous Approach (ICD-10-PCS; 2024-10-18)
DX: I70.222 Atherosclerosis of native arteries of extremities with rest pain, left leg (principal); D62 Acute posthemorrhagic anemia; E87.1 Hypo-osmolality and hyponatremia; I50.32 Chronic diastolic (congestive) heart failure; I82.402 Acute embolism and thrombosis of unspecified deep veins of left lower extremity; F32.2 Major depressive disorder, single episode, severe without psychotic features; J96.11 Chronic respiratory failure with hypoxia; I82.891 Chronic embolism and thrombosis of other specified veins; I73.89 Other specified peripheral vascular diseases; I11.0 Hypertensive heart disease with heart failure; J44.9 Chronic obstructive pulmonary disease, unspecified; E78.5 Hyperlipidemia, unspecified; F17.210 Nicotine dependence, cigarettes, uncomplicated; D64.9 Anemia, unspecified; D75.839 Thrombocytosis, unspecified; Z23 Encounter for immunization; D72.829 Elevated white blood cell count, unspecified; E83.51 Hypocalcemia; M19.049 Primary osteoarthritis, unspecified hand; Z71.6 Tobacco abuse counseling; Z79.01 Long term (current) use of anticoagulants; Z79.82 Long term (current) use of aspirin; Z99.81 Dependence on supplemental oxygen; Z79.899 Other long term (current) drug therapy; Z80.7 Family history of other malignant neoplasms of lymphoid, hematopoietic and related tissues; Z80.8 Family history of malignant neoplasm of other organs or systems
CPT/HCPCS: 35556; 36415; 71045; 71046; 80048; 83735; 84100; 85025; 85027; 85610; 85730; 86850; 86900; 86901; 93005; 94640; 97162

== ENCOUNTER → 2024-11-27 06:46 | Outpatient (REF) | payer MEDICARE, OTHER, SELFPAY | LOC: RAD 06:46 | PROVIDERS: ATTENDING PHYSICIAN Physician Assistant; FAMILY PHYSICIAN Internal Medicine | DX: I73.9 Peripheral vascular disease, unspecified (principal) | CPT/HCPCS: 93922; 93925 ==

== ENCOUNTER → 2025-06-14 08:59 | Outpatient (REF) | payer MEDICARE, OTHER, SELFPAY | LOC: RAD 08:59 | PROVIDERS: ATTENDING PHYSICIAN Surgery Vascular Surgery | DX: I73.9 Peripheral vascular disease, unspecified (principal) | CPT/HCPCS: 93922; 93925 ==